=== PATIENT | male | born 1975 | race Caucasian/White ===

== ENCOUNTER 2021-08-05 11:28 | Emergency (ER) | payer OTHER, SELFPAY ==
[~2021-08-05] VITALS: Ht 182.9 cm; Wt 127.0 kg
[2021-08-05 11:54] VITALS: BP 123/68
--- NOTE | 2021-08-05 11:56 | NUR ---
PT TO AWAIT IN TENT
--- NOTE | 2021-08-05 12:50 | NUR ---
ADRIEN AND JACKSON SWAB COLLECTED AND WALKED TO LAB.
[2021-08-05 15:02] VITALS: BP 123/68
--- NOTE | 2021-08-05 15:02 | NUR ---
Patient discharged with v/s stable. Written and verbal after care instructions given and explained. Patient alert, oriented and verbalized understanding of instructions. Ambulatory with steady gait. All questions addressed prior to discharge. ID band removed. Patient advised to follow up with PMD. Opportunity to ask questions provided and answered.
== END 2021-08-05 15:02 | disposition home or self-care (01) ==
LOC: MED 11:28
DX: J06.9 Acute upper respiratory infection, unspecified (principal); Z20.822 Contact with and (suspected) exposure to COVID-19
CPT/HCPCS: 71045; 87426; 99284; U0003

== ENCOUNTER 2022-02-19 17:47 | Emergency (ER) | payer OTHER ==
[~2022-02-19] VITALS: Ht 188 cm; Wt 131.1 kg
[2022-02-19 17:53] VITALS: BP 142/82
--- NOTE | 2022-02-19 18:00 | NUR ---
PT AMBULATED TO BED 07.
--- NOTE | 2022-02-19 18:40 | NUR ---
HARSHA BLOCK AT BEDSIDE EVALUATING PT
--- NOTE | 2022-02-19 18:45 | NUR ---
47 Y/O MALE C/O MIGRAINE X3 DAYS. PT REPORTS HE HAD DIARRHEA, FATIGUE AND CHILLS X 5 DAYS AGO BUT S/S HAVE SINCE RESOLVED EXCEPT FOR THE HEADACHE. DENIES ABDOMINAL PAIN. PT REPORTS CONGESTION WHICH OCCURS WHEN HE HAS MIGRAINES. +NAUSEA/VOMITING X1 EPISODE. PT REPORTS TAKING OTC AND PRESCRIBED MIGRAINE MEDS WITHOUT RELIEF. PT IS SENSITIVE TO LIGHT. DENIES ANYONE SICK AT HOME. DENIES TESTING FOR COVID. PT A/O X4 WITH EVEN AND UNLABORED RESPIRATIONS. PMH:HDL, SLEEP APNEA, MIGRAINES NKDA
[2022-02-19] MEDS: NACL 0.9% 1,000 ML IV ONE (18:57)
[2022-02-19] MEDS: ONDANSETRON 4 MG/2 ML VIAL IVP ONE (19:00)
[2022-02-19] MEDS: KETOROLAC 30 MG/ML VIAL IVP ONE (19:02)
--- NOTE | 2022-02-19 19:06 | NUR ---
DAVE JURADO SAMPLE COLLECTED AND HANDED TO JORDAN NUNEZ TECH
--- NOTE | 2022-02-19 19:27 | NUR ---
REPORT GIVEN TO JOSE ARMANDO GRAY, TRANSFER OF CARE AT THIS TIME
--- NOTE | 2022-02-19 20:09 | NUR ---
WENT IN TO ADMINISTER MORPHINE PER ORDER. PT'S SIGNIFICANT OTHER STATED THEY HAVE REQUESTED DILUADID, TOLD THE PT THE MD ORDERS ARE TO START WITH MORPHINE. I TOLD PT WE USUALLY START WITH MORHPINE AND MOVE UP, PT'S SIGNIFACNT OTHER BEGAN TELLING ME THE DIFFERENCE BETWEEN HYDROCODONE AND MORPHINE. I TRIED TO EXPLAIN AND PT'S SIGNIFANT OTHER STATED "YOU CAN STOP NOW BECAUSE YOU OBVIOUSLY DONT KNOW WHAT YOU ARE SAYING". MD MADE AWARE. MD STATED TO PLEASE CALL SECURITY AND DO NO ENGAGE WITH PT'S SIGNICANT OTHER. PT DID NOT ASK OR ANYTHING DURING THIS TIME. PT'S SIGNIFACNT OTHER ALSO SAID THE PT IS OF CORRATE AND IT'S OBVIOUS I HAVE NEVER HAD A PHYSICIAN A PT THAT KNOWS WHAT THEY ARE DOING.
--- NOTE | 2022-02-19 20:16 | NUR ---
ER SECURITY PAGED TO EXCORT PT'S SIGNIFICANT OTHER. PT'S SIGNIFICANT OTHER DOES NOT WANT TO LEAVE AND REQUESTING TO SPEAK TO MD. MD STATED HE WILL NOT SPEAK TO HER ONLY THE PT.
--- NOTE | 2022-02-19 20:20 | NUR ---
pt partner becoming agitgated with laureen zuñiga for relating dr scott. dr garcia to speak to pt only and pt partner not wanting to leave. pt partner states she is speaking for pt becuase he had a headache, pt partner becoming agitated . partner states ivana are doctors and they know better
--- NOTE | 2022-02-19 20:27 | NUR ---
manning speaking to pt and partner
[2022-02-19] MEDS: MORPHINE SULFATE 4 MG/ML SYR IVP ONE ×2 (20:29→21:37)
--- NOTE | 2022-02-19 21:00 | NUR ---
pt did not want to leave until he was free from pain
[2022-02-19] MEDS ORDERED: SUMA100T1 PO (21:25)
[2022-02-19] MEDS ORDERED: MORPHINE SULFATE 4 MG/ML SYR ONE (21:27)
[2022-02-19 22:00] VITALS: BP 143/98
--- NOTE | 2022-02-19 22:00 | NUR ---
Note hallie in ED - 02/19/22 at 2253 by JANES Patient discharged with v/s stable. Written and verbal after care instructions given and explained. Patient alert, oriented and verbalized understanding of instructions. Ambulatory with steady gait. All questions addressed prior to discharge. ID band removed. Patient advised to follow up with PMD. Rx of sumitriptan given. Opportunity to ask questions provided and answered.
== END 2022-02-19 20:00 | disposition home or self-care (01) ==
LOC: MED 17:47
DX: G43.909 Migraine, unspecified, not intractable, without status migrainosus (principal); Z20.822 Contact with and (suspected) exposure to COVID-19; E78.5 Hyperlipidemia, unspecified; Z79.899 Other long term (current) drug therapy
CPT/HCPCS: 87426; 96361; 96374; 96375; 99284; J1885; J2270; J2405; J7030